=== PATIENT | male | born 1945 | race Caucasian/White ===

== ENCOUNTER 2016-06-23 17:02 | Emergency (ER) | payer MEDICARE, OTHER ==
[2016-06-23 15:18] LABS: WBC (NOT ORDERED) (RFLEX) 0 (0-5)
[2016-06-23 15:25] LABS: BASOPHILS 0.3 %; BASOPHILS ABSOLUTE 0.02 10/3/uL (0.0-0.16); EOSINOPHILS 0.9 %; EOSINOPHILS ABSOLUTE 0.06 10/3/uL (0.0-0.53); ER CBC TAT 0 Hrs 10 Mins; HEMATOCRIT 40.8 % (40.0-51.0); HEMOGLOBIN 13.5 g/dL (13.6-17.8); IMMATURE GRANULOCYTES 0.1 %; IMMATURE GRANULOCYTES ABSOLUTE 0.01 10/3/uL (0.0-0.11); LYMPHOCYTES 16.9 %; LYMPHOCYTES ABSOLUTE 1.17 10/3/uL (0.67-4.30); MANUAL DIFF NO %; MEAN CORPUS HGB CONC 33.1 g/dL (32.0-36.0); MEAN CORPUSCULAR HEMOGLOB 29.8 pg (26.0-34.0); MEAN CORPUSCULAR VOLUME 90.1 fL (80-100); MEAN PLATELET VOLUME 10.1 fL (9.2-13.0); MONOCYTES 5.6 %; MONOCYTES ABSOLUTE 0.39 10/3/uL (0.21-1.20); NEUTROPHILS 76.2 %; NEUTROPHILS ABSOLUTE 5.26 10/3/uL (2.02-8.40); PLATELET COUNT 205 10/3/uL (150-400); RBC DISTRIBUTION WIDTH 12.7 % (12.0-16.0); RED CELL COUNT 4.53 10/6/uL (4.7-6.1); WHITE BLOOD CELLS 6.9 10/3/uL (4.5-10.5)
[2016-06-23 15:26] LABS: ASCORBIC ACID (UR NOT ORDER) NEG (NEG); BILIRUBIN, URINE NEGATIVE (NEG); ER URINALYSIS TAT 0 Hrs 08 Mins; KETONE, URINE NEGATIVE (NEG); LEUKOCYTE ESTERASE(NOT OR NEG (NEG); NITRITE (URINE) NEG (NEG)
[2016-06-23 15:38] LABS: A/G RATIO 0.9 (0.7-1.9); ALBUMIN 4.5 G/DL (3.5-5.0); ALKALINE PHOSPHATASE 129 U/L (45-117); BUN (BLOOD UREA NITROGEN) 18 MG/DL (6-23); CALCIUM, SERUM 9.9 MG/DL (8.5-10.4); CHLORIDE, SERUM 101 MMOL/L (96-112); CO2 (CARBON DIOXIDE) 33 MMOL/L (24-34); CREATININE 1.29 MG/DL (0.70-1.30); GFR AFRICAN AMERICAN 64 ML/MIN (>=60); GFR NON AFRICAN AMERICAN 55 ML/MIN (>=60); GLUCOSE, SERUM 141 MG/DL (60-99); POTASSIUM, SERUM 3.8 MMOL/L (3.5-5.3); SGOT(AST) 22 U/L (5-40); SGPT(ALT) 20 U/L (5-65); SODIUM, SERUM 138 MMOL/L (135-148); TOTAL BILIRUBIN 0.6 MG/DL (0-1.2); TOTAL PROTEIN 9.5 G/DL (6.0-8.5)
[~2016-06-23 17:02] MED LIST: AMB10 PO; AMBIEN CR12.5 MG PO; AMITIZA24 PO; ASAB PO; CAP50 PO; COMBIGAN0.2 MG/0.5 OP; COSOPT OPH; DSS PO; ENDOCET1 TA3 PO; FLOMAX4 PO; HALF81 PO; IRON325 MG PO; JOINT HEALTH PO; KAPIDEX60 MG PO; LEVAQUIN750 MG PO; MAX25 PO; MILK THISLE PO; MIRALAX POWDER1 PKT PO; MIRALAXPKT PO; MOBIC15 MG PO; MSCONT15 PO; NASACORTAQ NAS; NASONEX NAS; NEUR300 PO; NEUR600 PO; NORV10 PO; OPANA ER30 MG PO; PERCOCET1 TA5 PO; PLAVIX PO; PRAVACHOL40 MG PO; PRILOSEC40 MG PO; ROXICODONE15 MG PO; ROXICODONE30 MG PO; SINGULAIR1 PO; TIMOLOL MAL0.5 % OP; VITAMIN B-121000 MC1 SL; VITAMIN D1000 UNI1 PO; VITC500 PO; VITE PO; XALAT OPH; XANAX1 MG PO; XANAX2 MG PO; ZOVI800 PO; ZYRTEC ALLGY10 MG PO
[2016-06-28] MEDS ORDERED: NORV5 PO (09:35)
[2016-06-28] MEDS ORDERED: ZOVIRAX400 MG PO (09:35)
[2016-09-12] MEDS ORDERED: PRAVACHOL40 MG PO (21:32)
[2016-09-12] MEDS ORDERED: ROXICODONE30 MG PO (21:32)
[2016-09-12] MEDS ORDERED: XANAX2 MG PO (21:32)
[2016-09-12] MEDS ORDERED: NORV5 PO (21:32)
[2016-09-12] MEDS ORDERED: OPANA ER30 MG PO (21:32)
[2016-09-12] MEDS ORDERED: COSOPT OPH (21:33)
[2016-09-12] MEDS ORDERED: AMITIZA24 PO (21:33)
[2016-09-12] MEDS ORDERED: NEUR600 PO (21:33)
[2016-09-12] MEDS ORDERED: MAX25 PO (21:33)
[2016-09-12] MEDS ORDERED: ASAB PO (21:33)
[2016-09-12] MEDS ORDERED: XALAT OPH (21:34)
[2016-09-12] MEDS ORDERED: ZOVIRAX400 MG PO (21:34)
[2016-09-12] MEDS ORDERED: MIRALAX POWDER1 PKT PO (21:34)
[2016-09-17] MEDS ORDERED: CEFT5 PO (10:30)
== END 2016-06-23 22:13 | disposition home or self-care (01) ==
LOC: ER 17:02
PROVIDERS: Emergency Medicine
DX: K59.03 Drug induced constipation (principal); T40.605A Adverse effect of unspecified narcotics, initial encounter; Z88.0 Allergy status to penicillin; Z88.2 Allergy status to sulfonamides; Z88.5 Allergy status to narcotic agent; Z88.8 Allergy status to other drugs, medicaments and biological substances; Z79.899 Other long term (current) drug therapy; Z79.82 Long term (current) use of aspirin
CPT/HCPCS: 74176; 80053; 81001; 83690; 85025; 99284; A9270-GY

== ENCOUNTER 2016-06-24 18:11 | Emergency (ER) | payer MEDICARE, OTHER ==
[2016-06-28] MEDS ORDERED: ZOVIRAX400 MG PO (09:35)
[2016-06-28] MEDS ORDERED: NORV5 PO (09:35)
[2016-09-12] MEDS ORDERED: XANAX2 MG PO (21:32)
[2016-09-12] MEDS ORDERED: OPANA ER30 MG PO (21:32)
[2016-09-12] MEDS ORDERED: PRAVACHOL40 MG PO (21:32)
[2016-09-12] MEDS ORDERED: NORV5 PO (21:32)
[2016-09-12] MEDS ORDERED: ROXICODONE30 MG PO (21:32)
[2016-09-12] MEDS ORDERED: AMITIZA24 PO (21:33)
[2016-09-12] MEDS ORDERED: NEUR600 PO (21:33)
[2016-09-12] MEDS ORDERED: COSOPT OPH (21:33)
[2016-09-12] MEDS ORDERED: MAX25 PO (21:33)
[2016-09-12] MEDS ORDERED: ASAB PO (21:33)
[2016-09-12] MEDS ORDERED: XALAT OPH (21:34)
[2016-09-12] MEDS ORDERED: ZOVIRAX400 MG PO (21:34)
[2016-09-12] MEDS ORDERED: MIRALAX POWDER1 PKT PO (21:34)
[2016-09-17] MEDS ORDERED: CEFT5 PO (10:30)
== END 2016-06-24 18:50 | disposition left against medical advice (07) ==
LOC: ER 18:11
DX: Z53.21 Procedure and treatment not carried out due to patient leaving prior to being seen by health care provider (principal)
CPT/HCPCS: 80053; 81001; 83690; 85025

== ENCOUNTER 2016-06-26 17:30 | Emergency (ER) | payer MEDICARE, OTHER ==
[2016-06-26 16:39] LABS: BASOPHILS 0.3 %; BASOPHILS ABSOLUTE 0.02 10/3/uL (0.0-0.16); EOSINOPHILS 1.1 %; EOSINOPHILS ABSOLUTE 0.07 10/3/uL (0.0-0.53); HEMOGLOBIN 12.2 g/dL (13.6-17.8); IMMATURE GRANULOCYTES 0.2 %; IMMATURE GRANULOCYTES ABSOLUTE 0.01 10/3/uL (0.0-0.11); LYMPHOCYTES 24.6 %; LYMPHOCYTES ABSOLUTE 1.52 10/3/uL (0.67-4.30); MEAN CORPUS HGB CONC 33.3 g/dL (32.0-36.0); MEAN CORPUSCULAR VOLUME 90.1 fL (80-100); MEAN PLATELET VOLUME 9.8 fL (9.2-13.0); MONOCYTES 9.9 %; MONOCYTES ABSOLUTE 0.61 10/3/uL (0.21-1.20); NEUTROPHILS 63.9 %; NEUTROPHILS ABSOLUTE 3.94 10/3/uL (2.02-8.40); PLATELET COUNT 198 10/3/uL (150-400); RBC DISTRIBUTION WIDTH 12.7 % (12.0-16.0); RED CELL COUNT 4.06 10/6/uL (4.7-6.1); WHITE BLOOD CELLS 6.2 10/3/uL (4.5-10.5)
[2016-06-26 16:40] LABS: HEMATOCRIT 36.6 % (40.0-51.0); MANUAL DIFF NO %
[2016-06-26 16:56] LABS: ALBUMIN 4.1 G/DL (3.5-5.0); BUN (BLOOD UREA NITROGEN) 20 MG/DL (6-23); CALCIUM, SERUM 9.3 MG/DL (8.5-10.4); CHLORIDE, SERUM 99 MMOL/L (96-112); CO2 (CARBON DIOXIDE) 34 MMOL/L (24-34); CREATININE 1.18 MG/DL (0.70-1.30); GFR AFRICAN AMERICAN 71 ML/MIN (>=60); GFR NON AFRICAN AMERICAN 61 ML/MIN (>=60); GLOBULIN 4.2 G/DL (2.5-4.1); POTASSIUM, SERUM 3.7 MMOL/L (3.5-5.3); SGOT(AST) 25 U/L (5-40); SGPT(ALT) 18 U/L (5-65); SODIUM, SERUM 136 MMOL/L (135-148); TOTAL BILIRUBIN 0.7 MG/DL (0-1.2); TOTAL PROTEIN 8.3 G/DL (6.0-8.5)
[2016-06-26 16:57] LABS: ALKALINE PHOSPHATASE 108 U/L (45-117); GLUCOSE, SERUM 106 MG/DL (60-99)
[2016-06-26 17:19] LABS: ASCORBIC ACID (UR NOT ORDER) NEG (NEG); BILIRUBIN, URINE NEGATIVE (NEG); ER URINALYSIS TAT 0 Hrs 15 Mins; KETONE, URINE NEGATIVE (NEG); LEUKOCYTE ESTERASE(NOT OR NEG (NEG); NITRITE (URINE) NEG (NEG); WBC (NOT ORDERED) (RFLEX) 2 (0-5)
[2016-06-28] MEDS ORDERED: ZOVIRAX400 MG PO (09:35)
[2016-06-28] MEDS ORDERED: NORV5 PO (09:35)
[2016-09-12] MEDS ORDERED: NORV5 PO (21:32)
[2016-09-12] MEDS ORDERED: PRAVACHOL40 MG PO (21:32)
[2016-09-12] MEDS ORDERED: OPANA ER30 MG PO (21:32)
[2016-09-12] MEDS ORDERED: XANAX2 MG PO (21:32)
[2016-09-12] MEDS ORDERED: ROXICODONE30 MG PO (21:32)
[2016-09-12] MEDS ORDERED: COSOPT OPH (21:33)
[2016-09-12] MEDS ORDERED: ASAB PO (21:33)
[2016-09-12] MEDS ORDERED: NEUR600 PO (21:33)
[2016-09-12] MEDS ORDERED: AMITIZA24 PO (21:33)
[2016-09-12] MEDS ORDERED: MAX25 PO (21:33)
[2016-09-12] MEDS ORDERED: ZOVIRAX400 MG PO (21:34)
[2016-09-12] MEDS ORDERED: XALAT OPH (21:34)
[2016-09-12] MEDS ORDERED: MIRALAX POWDER1 PKT PO (21:34)
[2016-09-17] MEDS ORDERED: CEFT5 PO (10:30)
== END 2016-06-26 18:15 | disposition home or self-care (01) ==
LOC: ER 17:30
PROVIDERS: Emergency Medicine
DX: R10.9 Unspecified abdominal pain (principal); K59.00 Constipation, unspecified; I10 Essential (primary) hypertension; I25.2 Old myocardial infarction; J45.909 Unspecified asthma, uncomplicated; Z79.899 Other long term (current) drug therapy
CPT/HCPCS: 80053; 81001; 83690; 85025; 96372; 99284

== ENCOUNTER 2016-06-29 07:57 | Day surgery (SDC) | payer MEDICARE, OTHER ==
--- NOTE | ~2016-06-29 | EGD ---
EGD REPORT [facility] [address] [place]. [address] NAME: HUBERT TORRE : [birth year] STATUS : REG [facility] [place] PAT#: [id number] AGE: 70 ADM/REG DATE : 06/29/16 MR#: [id number] REPORT SERV DATE: 06/29/16 DICTATED BY: ANGEL MOORE DATE: 06/29/16 REPORT STATUS : Draft TRANSCRIBED BY: [employer] DATE: 06/29/16 [facility] Patient Name: Hubert Torre Date of : 1945 Attending MD: ANGEL MOORE MD Procedure Date No Time: 06/29/2016 Procedure: Colonoscopy Indications: Generalized abdominal pain, Constipation Medicines: Propofol per Anesthesia Complications: No immediate complications. Procedure: Pre-Anesthesia Assessment: - ASA Grade Assessment: III - A patient with severe systemic disease. After I obtained informed consent, the scope was passed under direct vision. Throughout the procedure, the patient's blood pressure, pulse, and oxygen saturations were monitored continuously. The CF [id number] was introduced through the anus and advanced to the cecum, identified by appendiceal orifice and ileocecal valve. The ileocecal valve was photographed. The quality of the bowel preparation was adequate to identify polyps. Findings: The perianal and digital rectal examinations were normal. There was a very tortuous area in the sigmid colon. It looked as if the bowel was in the hernia sac. This was reduced and the scope was able to advance further. No obvious abnormality was seen on scope withdrawl Internal hemorrhoids were found during retroflexion and were Grade I (internal hemorrhoids that do not prolapse). Impression: - Internal hemorrhoids. Recommendation: - Discharge patient to home (ambulatory). - Return to my office in 3 weeks. There may be intermittent bowel protrusion into the inguinal hemorrhoid. If the abdominal pain continues hernia surgery may be necesary. Procedure Code(s): --- Professional --- 20090, Colonoscopy, flexible, proximal to splenic flexure; diagnostic, with or without collection of specimen(s) by brushing or washing, with or without colon decompression (separate procedure) Diagnosis Code(s): --- Professional --- EGD REPORT [facility] [address] [place], [place] [address]. [address] NAME: HUBERT TORRE : [birth year] STATUS : REG [facility] [place] PAT#: [id number] AGE: 70 ADM/REG DATE : 06/29/16 MR#: [id number] REPORT SERV DATE: 06/29/16 DICTATED BY: ANGEL MOORE. DATE: 06/29/16 REPORT STATUS : Draft TRANSCRIBED BY: [employer] DATE: 06/29/16 K64.0, First degree hemorrhoids R10.84, Generalized abdominal pain K59.00, Constipation, unspecified CPT copyright 2013 [employer]. All rights reserved. The codes documented in this report are preliminary and upon health service worker review may be revised to meet current compliance requirements. Angel Moore MD ANGEL MOORE MD 06/29/2016 9:23 AM This report has been signed electronically. Number of Addenda: 0 Note Initiated On: 06/29/2016 8:47 AM Scope Withdrawal Time 0 hours 6 minutes 16 seconds [address] [facility] [place] [address]
--- NOTE | ~2016-06-29 | EGD ---
EGD REPORT [facility] [address] [place] [address] NAME: HUBERT ANAYA : [birth year] STATUS : REG [facility] [place] PAT#: [id number] AGE: 70 ADM/REG DATE : 06/29/16 MR#: [id number] REPORT SERV DATE: 06/29/16 DICTATED BY: ANGEL MOORE DATE: 06/29/16 REPORT STATUS : Draft TRANSCRIBED BY: [employer] DATE: 06/29/16 [facility] Patient Name: Hubert Anaya Date of : 1945 Attending MD: ANGEL MOOER MD Procedure Date No Time: 06/29/2016 Procedure: Upper GI endoscopy Indications: Dyspepsia, Nausea with vomiting Medicines: Propofol per Anesthesia Complications: No immediate complications. Procedure: Pre-Anesthesia Assessment: - ASA Grade Assessment: III - A patient with severe systemic disease. After obtaining informed consent, the endoscope was passed under direct vision. Throughout the procedure, the patient's blood pressure, pulse, and oxygen saturations were monitored continuously. The GIF [id number] was introduced through the mouth, and advanced to the second part of duodenum. The upper GI endoscopy was accomplished without difficulty. The patient tolerated the procedure well. Findings: A large hiatus hernia was present. Diffuse moderate inflammation characterized by erosions, erythema and friability was found in the stomach. The examined duodenum was normal. Impression: - Hiatus hernia. This hernia measured from 32 cm to 42 cm from the incisors. It was a 10 cm long hiatal hernia. - Chronic gastritis. - Normal examined duodenum. Recommendation: - Discharge patient to home (ambulatory). - Return to my office in 3 weeks. Procedure Code(s): --- Professional --- 43121, Esophagogastroduodenoscopy, flexible, transoral; diagnostic, including collection of specimen(s) by brushing or washing, when performed (separate procedure) Diagnosis Code(s): --- Professional --- K44.9, Diaphragmatic hernia without obstruction or gangrene K29.50, Unspecified chronic gastritis without bleeding EGD REPORT [facility] [address] [place], [place] [address]. [address] NAME: HUBERT ANAYA : [birth year] STATUS : REG [facility] [place] PAT#: [id number] AGE: 70 ADM/REG DATE : 06/29/16 MR#: [id number] REPORT SERV DATE: 06/29/16 DICTATED BY: ANGEL MOORE. DATE: 06/29/16 REPORT STATUS : Draft TRANSCRIBED BY: [employer] DATE: 06/29/16 K30, Functional dyspepsia R11.2, Nausea with vomiting, unspecified CPT copyright 2013 [employer]. All rights reserved. The codes documented in this report are preliminary and upon computer language coder review may be revised to meet current compliance requirements. Angel Moore MD ANGEL MOORE MD 06/29/2016 9:07 AM This report has been signed electronically. Number of Addenda: 0 Note Initiated On: 06/29/2016 8:55 AM Scope Withdrawal Time 0 hours 0 minutes 0 seconds [address] [place] [address]
[~2016-06-29 07:57] MED LIST changes: +NORV5 PO; +ZOVIRAX400 MG PO
[2016-09-12] MEDS ORDERED: XANAX2 MG PO (21:32)
[2016-09-12] MEDS ORDERED: OPANA ER30 MG PO (21:32)
[2016-09-12] MEDS ORDERED: NORV5 PO (21:32)
[2016-09-12] MEDS ORDERED: PRAVACHOL40 MG PO (21:32)
[2016-09-12] MEDS ORDERED: ROXICODONE30 MG PO (21:32)
[2016-09-12] MEDS ORDERED: AMITIZA24 PO (21:33)
[2016-09-12] MEDS ORDERED: MAX25 PO (21:33)
[2016-09-12] MEDS ORDERED: COSOPT OPH (21:33)
[2016-09-12] MEDS ORDERED: NEUR600 PO (21:33)
[2016-09-12] MEDS ORDERED: ASAB PO (21:33)
[2016-09-12] MEDS ORDERED: MIRALAX POWDER1 PKT PO (21:34)
[2016-09-12] MEDS ORDERED: ZOVIRAX400 MG PO (21:34)
[2016-09-12] MEDS ORDERED: XALAT OPH (21:34)
[2016-09-17] MEDS ORDERED: CEFT5 PO (10:30)
== END 2016-06-29 23:59 | disposition home health service (06) ==
LOC: DMU 07:57
PROVIDERS: Internal Medicine Gastroenterology
PROC: 0DJ08ZZ Inspection of Upper Intestinal Tract, Via Natural or Artificial Opening Endoscopic (ICD-10-PCS; principal; 2016-06-29 10:30)
PROC: 0DJD8ZZ Inspection of Lower Intestinal Tract, Via Natural or Artificial Opening Endoscopic (ICD-10-PCS; 2016-06-29 10:30)
DX: K29.50 Unspecified chronic gastritis without bleeding (principal); K64.0 First degree hemorrhoids; K44.9 Diaphragmatic hernia without obstruction or gangrene; I25.10 Atherosclerotic heart disease of native coronary artery without angina pectoris; I10 Essential (primary) hypertension; E78.00 Pure hypercholesterolemia, unspecified; M19.90 Unspecified osteoarthritis, unspecified site; K21.9 Gastro-esophageal reflux disease without esophagitis; F41.9 Anxiety disorder, unspecified; D64.9 Anemia, unspecified; Z86.73 Personal history of transient ischemic attack (TIA), and cerebral infarction without residual deficits; Z79.82 Long term (current) use of aspirin; Z88.0 Allergy status to penicillin; Z88.2 Allergy status to sulfonamides; Z88.5 Allergy status to narcotic agent; Z79.899 Other long term (current) drug therapy; Z98.890 Other specified postprocedural states

== ENCOUNTER 2016-07-02 15:23 | Emergency (ER) | payer MEDICARE, OTHER ==
[2016-07-02 13:24] LABS: BASOPHILS 0.9 %; BASOPHILS ABSOLUTE 0.04 10/3/uL (0.0-0.16); EOSINOPHILS 3.5 %; EOSINOPHILS ABSOLUTE 0.16 10/3/uL (0.0-0.53); HEMATOCRIT 36.9 % (40.0-51.0); HEMOGLOBIN 12.3 g/dL (13.6-17.8); IMMATURE GRANULOCYTES 0.2 %; IMMATURE GRANULOCYTES ABSOLUTE 0.01 10/3/uL (0.0-0.11); LYMPHOCYTES 30.5 %; LYMPHOCYTES ABSOLUTE 1.39 10/3/uL (0.67-4.30); MANUAL DIFF NO %; MEAN CORPUS HGB CONC 33.3 g/dL (32.0-36.0); MEAN CORPUSCULAR HEMOGLOB 29.8 pg (26.0-34.0); MEAN CORPUSCULAR VOLUME 89.3 fL (80-100); MEAN PLATELET VOLUME 10.1 fL (9.2-13.0); MONOCYTES 8.6 %; MONOCYTES ABSOLUTE 0.39 10/3/uL (0.21-1.20); NEUTROPHILS 56.3 %; NEUTROPHILS ABSOLUTE 2.56 10/3/uL (2.02-8.40); PLATELET COUNT 222 10/3/uL (150-400); RBC DISTRIBUTION WIDTH 12.5 % (12.0-16.0); RED CELL COUNT 4.13 10/6/uL (4.7-6.1); WHITE BLOOD CELLS 4.6 10/3/uL (4.5-10.5)
[2016-07-02 13:40] LABS: A/G RATIO 0.9 (0.7-1.9); ALBUMIN 4.3 G/DL (3.5-5.0); ALKALINE PHOSPHATASE 123 U/L (45-117); BUN (BLOOD UREA NITROGEN) 16 MG/DL (6-23); CALCIUM, SERUM 9.7 MG/DL (8.5-10.4); CHLORIDE, SERUM 98 MMOL/L (96-112); CO2 (CARBON DIOXIDE) 32 MMOL/L (24-34); CREATININE 1.19 MG/DL (0.70-1.30); GFR AFRICAN AMERICAN 70 ML/MIN (>=60); GFR NON AFRICAN AMERICAN 61 ML/MIN (>=60); GLOBULIN 4.6 G/DL (2.5-4.1); GLUCOSE, SERUM 138 MG/DL (60-99); POTASSIUM, SERUM 3.8 MMOL/L (3.5-5.3); SGOT(AST) 24 U/L (5-40); SGPT(ALT) 18 U/L (5-65); SODIUM, SERUM 139 MMOL/L (135-148); TOTAL BILIRUBIN 0.4 MG/DL (0-1.2); TOTAL PROTEIN 8.9 G/DL (6.0-8.5)
[2016-09-12] MEDS ORDERED: OPANA ER30 MG PO (21:32)
[2016-09-12] MEDS ORDERED: ROXICODONE30 MG PO (21:32)
[2016-09-12] MEDS ORDERED: XANAX2 MG PO (21:32)
[2016-09-12] MEDS ORDERED: PRAVACHOL40 MG PO (21:32)
[2016-09-12] MEDS ORDERED: NORV5 PO (21:32)
[2016-09-12] MEDS ORDERED: COSOPT OPH (21:33)
[2016-09-12] MEDS ORDERED: MAX25 PO (21:33)
[2016-09-12] MEDS ORDERED: ASAB PO (21:33)
[2016-09-12] MEDS ORDERED: AMITIZA24 PO (21:33)
[2016-09-12] MEDS ORDERED: NEUR600 PO (21:33)
[2016-09-12] MEDS ORDERED: MIRALAX POWDER1 PKT PO (21:34)
[2016-09-12] MEDS ORDERED: XALAT OPH (21:34)
[2016-09-12] MEDS ORDERED: ZOVIRAX400 MG PO (21:34)
[2016-09-17] MEDS ORDERED: CEFT5 PO (10:30)
== END 2016-07-02 16:15 | disposition home or self-care (01) ==
LOC: ER 15:23
PROVIDERS: Emergency Medicine
DX: M54.5 Low back pain (principal); M79.1 Myalgia; J45.909 Unspecified asthma, uncomplicated; I25.2 Old myocardial infarction; Z87.01 Personal history of pneumonia (recurrent); Z88.0 Allergy status to penicillin; Z88.2 Allergy status to sulfonamides; Z88.5 Allergy status to narcotic agent; Z91.09 Other allergy status, other than to drugs and biological substances; Z79.82 Long term (current) use of aspirin; Z79.899 Other long term (current) drug therapy
CPT/HCPCS: 74022; 80053; 83690; 85025; 93005; 96372; 99284; J1885